=== PATIENT | female | born 1975 | race Caucasian/White ===

== ENCOUNTER 2020-12-31 13:46 | Outpatient (REF) | payer OTHER, SELFPAY | END 2020-12-31 13:47 | disposition home or self-care (01) | LOC: HO.LNP 13:46 | PROVIDERS: Visit Provider Internal Medicine | DX: J02.9 Acute pharyngitis, unspecified (principal) | CPT/HCPCS: 87071 ==

== ENCOUNTER 2021-02-11 08:58 | Outpatient (REF) | payer OTHER, SELFPAY ==
--- NOTE | ~2021-02-11 | MM_ITS ---
EXAMINATION: MM SCREENING DIGITAL BREAST TOMOSYNTHESIS, BILATERAL CLINICAL INFORMATION: Screening. Asymptomatic. The lifetime risk of breast cancer based on the Tyrer-Cuzick Model is 10.4%. COMPARISON: Mammography: 02/06/2020 and studies dating back to 07/24/2013 TECHNIQUE: Digital breast tomosynthesis is performed in both the craniocaudal and mediolateral oblique views along with computer-aided detection (CAD). Synthesized 2-D images are generated from the tomosynthesis. FINDINGS: The breasts are heterogeneously dense, which may obscure small masses (ACR BI-RADS breast composition Category c). Within the superior aspect of the right breast approximately 7 cm from nipple, there is a region of some architectural distortion which appears more prominent than on prior studies, and spot compression view is recommended. This is not definitely seen on craniocaudal view but on tomosynthesis is seen to lie more medial than lateral. The left breast appears unremarkable without abnormal dominant mass or suspicious grouping of microcalcifications. MM/MM tomosynthesis screening BI IMPRESSION: Right breast density for spot compression view and possible ultrasound. ASSESSMENT: BI-RADS 0: Incomplete - Need Additional Imaging Evaluation. RECOMMENDATION: 1. Additional views of the right breast. 2. Targeted ultrasound if warranted after review of the additional views. 3. Radiology department staff will contact the patient for additional imaging.
== END 2021-02-11 08:59 | disposition home or self-care (01) ==
LOC: HO.MAMMO 08:58
PROVIDERS: Visit Provider Internal Medicine
DX: Z12.31 Encounter for screening mammogram for malignant neoplasm of breast (principal)
CPT/HCPCS: 77063; 77067

== ENCOUNTER 2021-02-13 08:23 | Outpatient (REF) | payer OTHER, SELFPAY ==
--- NOTE | ~2021-02-13 | MM_ITS ---
EXAMINATION: MM DIAGNOSTIC DIGITAL BREAST TOMOSYNTHESIS, RIGHT CLINICAL INFORMATION: Recall from screening for asymmetric density upper right breast limited to MLO view. TC score 10%. COMPARISON: Mammography: 02/11/2021 and prior exams dating back to 07/24/2013. TECHNIQUE: Digital breast tomosynthesis is performed. 2D images are generated from the tomosynthesis. The following views are obtained: Spot MLO, standard ML. FINDINGS: There are scattered areas of fibroglandular density (ACR BI-RADS breast composition Category b). Breast tissue composition borders on heterogeneously dense. Parenchymal pattern is similar to prior studies dating back to 2013. There are shifting fibroglandular densities from year to year. There is no developing density or interval mass or architectural abnormality. Results are discussed with the patient at time of visit. MM/MM tomosynthesis added views R IMPRESSION: Additional views show no significant changes from prior exams. ASSESSMENT: BI-RADS 2: Benign RECOMMENDATION: Routine annual mammography screening. This patient's information was entered into a reminder system with a target due date for their next mammogram.
== END 2021-02-13 08:24 | disposition home or self-care (01) ==
LOC: HO.MAMMO 08:23
PROVIDERS: Visit Provider Internal Medicine
DX: R92.2 Inconclusive mammogram (principal)
CPT/HCPCS: 77061; 77065

== ENCOUNTER 2021-05-07 15:07 | Outpatient (REF) | payer OTHER, SELFPAY ==
--- NOTE | ~2021-05-07 | XR_ITS ---
EXAMINATION: XR LUMBOSACRAL SPINE CLINICAL INFORMATION: Back pain. COMPARISON: None TECHNIQUE: Three views of the lumbosacral spine. FINDINGS: No fracture or subluxation. Vertebral body height and alignment is maintained. Mild disc space narrowing at L5-S1. Small multilevel endplate osteophytes. The sacroiliac joints are symmetric. The visualized sacrum is intact. The bowel gas pattern is unremarkable. XR/XR lumbar spine 2-3V IMPRESSION: Mild degenerative change throughout.
[2021-05-07 15:26] LABS: MANUAL DIFF FLAG NO
[2021-05-07 15:48] LABS: Basophils Percent Auto 0.4 % (0-2); Eosinophils Absolute Auto 0.1 X10*3/uL (0.0-0.4); Eosinophils Percent Auto 1.2 % (0-4); Imm Gran Abs Auto 0.04 X10*3/uL (0.00-0.03); Imm Gran Pct Auto 0.6 % (0.0-0.4); Lymphocytes Absolute Auto 2.1 X10*3/uL (1.2-4.9); Lymphocytes Percent Auto 31.5 % (20-40); Mean Corpuscular HGB Conc 32.3 g/dl (31.0-35.0); Mean Corpuscular Hemoglobin 29.1 pg (27.0-33.0); Mean Corpuscular Volume 90.1 fL (80.0-98.0); Mean Platelet Volume 10.6 fL (9.4-12.3); Monocytes Absolute Auto 0.5 X10*3/uL (0.1-1.2); Monocytes Percent Auto 8.1 % (2-11); Neutrophils Absolute Auto 3.9 x10*3/uL (2.0-8.3); Neutrophils Percent Auto 58.2 % (45-73); Platelet Count 272 X10*3/uL (160-400); Red Blood Count 3.44 X10*6/uL (4.20-5.50); Red Cell Distribution Width 13.9 % (11.0-16.0); White Blood Count 6.7 X10*3/uL (4.8-10.8)
[2021-05-07 16:15] LABS: Alanine Aminotransferase 13 U/L (0-31); Alkaline Phosphatase 33 U/L (39-117); Anion Gap 12 (12-20); Aspartate Amino Transferase 12 U/L (5-31); Bilirubin Total 0.5 mg/dL (0.0-1.0); Blood Urea Nitrogen 10 mg/dL (9-16); C Reactive Protein 0.09 mg/dL (< or = 0.50); Carbon Dioxide 26 mmol/L (22-29); Chloride 104 mmol/L (96-108); Estimated Glomerular Filt Rate > 60; Glucose Random 99 mg/dL (60-115); Potassium 4.9 mmol/L (3.3-5.1); Sodium 137 mmol/L (135-145); Total Protein 6.3 g/dL (6.5-8.0)
[2021-05-07 16:33] LABS: Appearance Urine CLEAR; Color Urine YELLOW; Glucose Urine UA NEG (NEG); Leukocyte Esterase Urine NEG (NEG); Nitrite Urine NEG (NEG); Urine Blood NEG (NEG); Urine Ketones 15 MG/DL (NEG); Urine Protein NEG (NEG-TRACE)
== END 2021-05-07 15:08 | disposition home or self-care (01) ==
LOC: HO.XRAY 15:07
PROVIDERS: Visit Provider Internal Medicine
DX: M54.9 Dorsalgia, unspecified (principal)
CPT/HCPCS: 36415; 72100; 80053; 81003; 82550; 85025; 86140; 87086; 87147

== ENCOUNTER 2022-02-12 09:16 | Outpatient (REF) | payer OTHER, SELFPAY ==
--- NOTE | ~2022-02-12 | MM_ITS ---
EXAMINATION: MM SCREENING DIGITAL BREAST TOMOSYNTHESIS, BILATERAL CLINICAL INFORMATION: Screening. Asymptomatic. The lifetime risk of breast cancer based on the Tyrer-Cuzick Model is 9%. COMPARISON: Mammography: 02/13/2021, 02/11/2021, 02/06/2020, 09/01/2018 TECHNIQUE: Digital breast tomosynthesis is performed in both the craniocaudal and mediolateral oblique views along with computer-aided detection (CAD). Synthesized 2D images are generated from the tomosynthesis. FINDINGS: There are scattered areas of fibroglandular density (ACR BI-RADS breast composition Category b). There are no significant masses, abnormal calcifications, or other abnormalities. Parenchymal pattern is similar to prior studies. There is no developing density or architectural abnormality. The axilla and skin contours are unremarkable. No significant changes. MM/MM tomosynthesis screening BI IMPRESSION: No mammographic evidence of malignancy. ASSESSMENT: BI-RADS 1: Negative RECOMMENDATION: Routine annual mammography screening. This patient's information was entered into a reminder system with a target due date for their next mammogram.
== END 2022-02-12 09:17 | disposition home or self-care (01) ==
LOC: HO.MAMMO 09:16
PROVIDERS: Visit Provider Internal Medicine
DX: Z12.31 Encounter for screening mammogram for malignant neoplasm of breast (principal)
CPT/HCPCS: 77063; 77067

== ENCOUNTER 2022-04-09 15:49 | Outpatient (REF) | payer OTHER, SELFPAY | END 2022-04-09 15:50 | disposition home or self-care (01) | LOC: HO.LAB 15:49 | PROVIDERS: PCP Internal Medicine; Visit Provider Internal Medicine | DX: R30.0 Dysuria (principal) | CPT/HCPCS: 87086; 87147 ==

== ENCOUNTER 2023-02-22 15:45 | Outpatient (REF) | payer OTHER, SELFPAY | END 2023-02-22 15:46 | disposition home or self-care (01) | LOC: HO.MAMMO 15:45 | PROVIDERS: PCP Internal Medicine; Visit Provider Internal Medicine | DX: Z12.31 Encounter for screening mammogram for malignant neoplasm of breast (principal) | CPT/HCPCS: 77063; 77067 ==

== ENCOUNTER → 2023-02-22 16:00 | Outpatient (BNV) | payer OTHER, SELFPAY | PROVIDERS: PCP Internal Medicine; Visit Provider Radiology Diagnostic Radiology | DX: Z12.31 Encounter for screening mammogram for malignant neoplasm of breast (principal) | CPT/HCPCS: 77063; 77067 ==

== ENCOUNTER 2023-04-20 14:05 | Outpatient (REF) | payer OTHER, SELFPAY ==
[2023-04-20 14:53] LABS: Appearance Urine Clear; Color Urine Yellow; Glucose Urine UA Negative (Negative); Leukocyte Esterase Urine Negative (Negative); Nitrite Urine Negative (Negative); PH 5.5 (5.0-9.0); Specific Gravity - Urine >= 1.030 (1.005-1.025); Urine Blood Negative (Negative); Urine Ketones Trace mg/dL (Negative); Urine Protein Negative (Neg-Trace)
== END 2023-04-20 14:06 | disposition home or self-care (01) ==
LOC: HO.LAB 14:05
PROVIDERS: PCP Internal Medicine; Visit Provider Internal Medicine
DX: R30.0 Dysuria (principal)
CPT/HCPCS: 81003; 87086

== ENCOUNTER 2023-04-25 16:18 | Outpatient (REF) | payer OTHER, SELFPAY ==
[2023-04-25 16:32] LABS: MANUAL DIFF FLAG NO
[2023-04-25 16:57] LABS: Basophils Percent Auto 0.5 % (0-2); Eosinophils Absolute Auto 0.1 X10*3/uL (0.0-0.4); Eosinophils Percent Auto 1.8 % (0-4); Hematocrit 35.6 % (37.0-47.0); Hemoglobin 11.7 g/dl (12.0-16.0); Imm Gran Abs Auto 0.02 X10*3/uL (0.00-0.03); Imm Gran Pct Auto 0.3 % (0.0-0.4); Lymphocytes Absolute Auto 1.8 X10*3/uL (1.2-4.9); Lymphocytes Percent Auto 29.9 % (20-40); Mean Corpuscular HGB Conc 32.9 g/dl (31.0-35.0); Mean Corpuscular Hemoglobin 29.6 pg (27.0-33.0); Mean Corpuscular Volume 90.1 fL (80.0-98.0); Mean Platelet Volume 10.4 fL (9.4-12.3); Monocytes Absolute Auto 0.5 X10*3/uL (0.1-1.2); Monocytes Percent Auto 8.9 % (2-11); Neutrophils Absolute Auto 3.6 x10*3/uL (2.0-8.3); Neutrophils Percent Auto 58.6 % (45-73); Platelet Count 263 X10*3/uL (160-400); Red Blood Count 3.95 X10*6/uL (4.20-5.50); Red Cell Distribution Width 12.7 % (11.0-16.0); White Blood Count 6.1 X10*3/uL (4.8-10.8)
[2023-04-25 17:48] LABS: Alanine Aminotransferase 14 U/L (0-31); Albumin Level 4.4 g/dL (3.5-5.0); Alkaline Phosphatase 38 U/L (39-117); Anion Gap 10 (12-20); Aspartate Amino Transferase 12 U/L (5-31); Bilirubin Total 0.4 mg/dL (0.0-1.0); Blood Urea Nitrogen 8 mg/dL (9-16); C Reactive Protein < 0.10 mg/dL (< or = 0.50); Calcium 9.5 mg/dL (8.4-10.2); Carbon Dioxide 28 mmol/L (22-29); Chloride 104 mmol/L (96-108); Estimated Glomerular Filt Rate > 60; Glucose Random 82 mg/dL (60-115); Potassium 3.9 mmol/L (3.3-5.1); Sodium 138 mmol/L (135-145)
== END 2023-04-25 16:19 | disposition home or self-care (01) ==
LOC: HO.LAB 16:18
PROVIDERS: PCP Internal Medicine; Visit Provider Internal Medicine
DX: M54.9 Dorsalgia, unspecified (principal); R20.8 Other disturbances of skin sensation
CPT/HCPCS: 36415; 80053; 82550; 85025; 86140

== ENCOUNTER 2023-06-23 10:47 | Outpatient (REF) | payer OTHER, SELFPAY ==
[2023-06-23 13:29] LABS: MANUAL DIFF FLAG NO
[2023-06-23 13:34] LABS: Basophils Percent Auto 0.6 % (0-2); Eosinophils Absolute Auto 0.1 X10*3/uL (0.0-0.4); Eosinophils Percent Auto 2.6 % (0-4); Hematocrit 35.2 % (37.0-47.0); Hemoglobin 11.6 g/dl (12.0-16.0); Imm Gran Abs Auto 0.01 X10*3/uL (0.00-0.03); Imm Gran Pct Auto 0.2 % (0.0-0.4); Lymphocytes Absolute Auto 1.8 X10*3/uL (1.2-4.9); Lymphocytes Percent Auto 32.8 % (20-40); Mean Corpuscular Hemoglobin 29.2 pg (27.0-33.0); Mean Corpuscular Volume 88.7 fL (80.0-98.0); Mean Platelet Volume 10.7 fL (9.4-12.3); Monocytes Absolute Auto 0.4 X10*3/uL (0.1-1.2); Monocytes Percent Auto 8.3 % (2-11); Neutrophils Percent Auto 55.5 % (45-73); Platelet Count 225 X10*3/uL (160-400); Red Blood Count 3.97 X10*6/uL (4.20-5.50); Red Cell Distribution Width 13.1 % (11.0-16.0); White Blood Count 5.3 X10*3/uL (4.8-10.8)
[2023-06-23 14:10] LABS: Alanine Aminotransferase 14 U/L (0-31); Albumin Level 4.1 g/dL (3.5-5.0); Alkaline Phosphatase 35 U/L (39-117); Anion Gap 12 (12-20); Aspartate Amino Transferase 12 U/L (5-31); Bilirubin Total 0.7 mg/dL (0.0-1.0); Blood Urea Nitrogen 12 mg/dL (9-16); Calcium 8.9 mg/dL (8.4-10.2); Carbon Dioxide 26 mmol/L (22-29); Chloride 104 mmol/L (96-108); Cholesterol 199 mg/dL (<200); Estimated Glomerular Filt Rate > 60; Glucose Fasting 91 mg/dL (60-99); HDL Cholesterol 85 mg/dL (>40); LDL Cholesterol Calculated 106 mg/dL (<100); Potassium 4.1 mmol/L (3.3-5.1); Sodium 138 mmol/L (135-145); Total Protein 6.8 g/dL (6.5-8.0); Triglycerides 43 mg/dL (<150); Vitamin D 25-OH Total 63.3 ng/mL (>30)
== END 2023-06-23 10:48 | disposition home or self-care (01) ==
LOC: HO.10HDL 10:47
PROVIDERS: Visit Provider Internal Medicine
DX: E78.00 Pure hypercholesterolemia, unspecified (principal); K21.9 Gastro-esophageal reflux disease without esophagitis; I83.90 Asymptomatic varicose veins of unspecified lower extremity
CPT/HCPCS: 36415; 80053; 80061; 82306; 85025

== ENCOUNTER 2024-01-10 06:47 | Day surgery (SDC) | payer OTHER, SELFPAY ==
[2024-01-06 14:43] VITALS: BMI 24.5
--- NOTE | 2024-01-09 10:13 | HO.ANESPROP2 ---
Documented by User: Lorelei Morillo NP 01/09/24 10:13 HPI - Anesthesia Eval Consult details Narrative: 48yo F for Colonoscopy [facility] Past Medical History Medical History Hypotension Surgical History Surgical History Hx of varicose vein ligation and stripping Social History Social History Household Members: Spouse Patient Tobacco Use Status: Never used Tobacco Use of substances other than those prescribed or required for medical reasons: No Are you DNR?: No Advance Directives: No Advance Directives Information Provided: Yes Meds Allergies Allergy/AdvReac Type Severity Reaction Status Date / Time No Known Allergies [NKA] Allergy Verified 01/10/24 07:20 Home Medications ?Medication ?Instructions ?Recorded ?Confirmed ?Last Taken ?Type biotin 10 mg tablet 10 mg PO DAILY 01/06/24 01/06/24 Unknown History cholecalciferol (vitamin D3) 50 50 mcg PO DAILY 01/06/24 01/06/24 Unknown History mcg (2,000 unit) capsule (Vitamin D3) collagen,hydrolysate 500 mg-biotin 1 cap PO DAILY 01/06/24 01/06/24 Unknown History 800 mcg-ascorbic acid 50 mg capsule (Collagen 1500 Plus C) multivitamin 1 tab PO DAILY 01/06/24 01/06/24 Unknown History Exam Height,Weight and Vital Signs: Height 5 ft 4 in Weight 64.864 kg Assessment and Plan Assessment Anesthesia Assessment: Chart Reviewed Documented by User: Jennifer Liu MD 01/10/24 07:39 PMF Past Medical History Medical History Hypotension Family History Family history of problems with anesthesia: No Surgical History Surgical History Hx of varicose vein ligation and stripping History of Problems with Anesthesia: No Social History Social History Household Members: Spouse Patient Tobacco Use Status: Never used Tobacco Use of substances other than those prescribed or required for medical reasons: No Are you DNR?: No Advance Directives: No Advance Directives Information Provided: Yes Meds Allergies Allergy/AdvReac Type Severity Reaction Status Date / Time No Known Allergies [NKA] Allergy Verified 01/10/24 07:20 Home Medications ?Medication ?Instructions ?Recorded ?Confirmed ?Last Taken ?Type biotin 10 mg tablet 10 mg PO DAILY 01/06/24 01/06/24 Unknown History cholecalciferol (vitamin D3) 50 50 mcg PO DAILY 01/06/24 01/06/24 Unknown History mcg (2,000 unit) capsule (Vitamin D3) collagen,hydrolysate 500 mg-biotin 1 cap PO DAILY 01/06/24 01/06/24 Unknown History 800 mcg-ascorbic acid 50 mg capsule (Collagen 1500 Plus C) multivitamin 1 tab PO DAILY 01/06/24 01/06/24 Unknown History Exam Airway Mallampati Class: II TM Dist: >3cm Neck ROM: Full Heart: rrr Lungs: cta Assessment and Plan Assessment Anesthesia Assessment: Anesthesia Plan Discussed Final Anesthetic Review Family History of Problems with Anesthesia: No History of Problems with Anesthesia: No NPO: Yes ASA Class: I Final Preanesthetic Review: No Changes in Pt Med Stat, Meds/Allgs Chart Reviewed, Consent Obtained/Reviewed and Anes Risks/Benef Reviewed Patient Risk: Low Procedure Risk: Low Anesthetic Plan Anesthetic Plan: MAC: Disposition: Standard PACU
[2024-01-10 07:21] VITALS: BMI 25.0
[2024-01-10 07:28] LABS: UPreg QC Valid YES; Urine Pregnancy NEGATIVE (NEGATIVE)
[2024-01-10 07:30] VITALS: BP 102/61; PULSE 68; RESP 16; TEMP 36.4; O2SAT 100
[2024-01-10] MEDS: Lactated Ringers 1,000 ML 100 ML IVCONT (07:42)
--- NOTE | 2024-01-10 08:15 | P.HPSUR_ITS ---
Pre-Procedural Eval Section A - 24 Hr Update-Section A only Date of Service: 01/10/24 Section B - Complete if H&P > 30 days Chief Complaint: Encounter for screening for malignant neoplasm of Details of Present Illness: see H&P no changes Relevant Family History (Specify if Yes): No Relevant Social History: None Present Medications: see Short Stay Collaborative assessment Medical History: No relevant PMH History of Previous Operations: No relevant previous surgery Allergies: Allergies Allergy/AdvReac Type Severity Reaction Status Date / Time No Known Allergies [NKA] Allergy Verified 01/10/24 07:20 Review of Systems Sugical H&P ROS: Negative: Constitution, Cardiovascular, Respiratory, Neurological, Psychiatric, Hem-Onc, Allergic/Immunologic, Gastrointestinal, Genitourinary, Musculoskeletal, Integumentary, Endocrine and Eyes/E ars/Nose/Throat Exam Surgical H&P Exam: Normal: HEENT, Normal: Heart, Normal: Lungs, Normal: Extremities, Normal: Abdomen, Normal: Skin and Normal: Neurological Plan Diagnosis/Plan: Unchanged I have reviewed the history and physical and performed a pertinent physical examination on my patient. No changes have occurred unless specified. Time Spent With Patient Time: Total time managing care of this patient today ____ minutes.
[2024-01-10 08:56] VITALS: BP 100/56; PULSE 76; RESP 16; TEMP 36.1; O2SAT 100
[2024-01-10 09:12] VITALS: BP 112/73; PULSE 69; RESP 20; TEMP 36.6; O2SAT 99
--- NOTE | 2024-01-10 09:48 | OP_ITS ---
DATE OF SERVICE: 01/10/2024 SURGEON: Brad Merchant MD INDICATIONS: Colon cancer screening. PREOPERATIVE DIAGNOSIS: POSTOPERATIVE DIAGNOSIS: PROCEDURE PERFORMED: Colonoscopy to the terminal ileum with biopsy. ESTIMATED BLOOD LOSS: COMPLICATIONS: ANESTHESIA: Monitored anesthesia care. ASSISTANTS: SPECIMENS: DESCRIPTION OF PROCEDURE: A history and physical performed. The risks and benefits of the procedure were explained to the patient. Informed consent was obtained. The patient was placed in the left lateral decubitus position. A digital rectal exam was performed and was found to be normal. The Olympus pediatric video colonoscope was introduced into the rectum and advanced to the cecum. The cecum was identified by transillumination, palpation, and identification of ileocecal valve. Examination was performed. The scope was removed. She tolerated the procedure well and was returned to the recovery area in stable condition. FINDINGS: The terminal ileum was briefly examined and appeared normal. The visualized colonic mucosa was normal. The quality of prep was good. Single polyp was identified at 20 cm from the anal verge and removed with biopsy forceps. No other polyps were identified. Retroflexed examination was normal. IMPRESSION: Colon polyp. RECOMMENDATIONS: Follow up with the biopsy results. MD MENDEZ Westfall/FREDDY / [id number]
== END 2024-01-10 09:31 | disposition home or self-care (01) ==
PROVIDERS: Nurse Practitioner; PCP Internal Medicine; Visit Provider Internal Medicine Gastroenterology
PROC: 0DJD8ZZ Inspection of Lower Intestinal Tract, Via Natural or Artificial Opening Endoscopic (ICD-10-PCS; CPT 45378; principal; 2024-01-10 08:20)
DX: Z12.11 Encounter for screening for malignant neoplasm of colon (principal); K63.5 Polyp of colon
CPT/HCPCS: 45380; 81025; 88305; J2704

== ENCOUNTER 2024-02-28 15:32 | Outpatient (REF) | payer OTHER, SELFPAY ==
--- NOTE | ~2024-02-28 | MM_ITS ---
EXAMINATION: MM SCREENING DIGITAL BREAST TOMOSYNTHESIS, BILATERAL CLINICAL INFORMATION: Screening. Asymptomatic. COMPARISON: Mammography: Comparison is made with available priors TECHNIQUE: Digital breast tomosynthesis is performed in both the craniocaudal and mediolateral oblique views along with computer-aided detection (CAD). Synthesized 2D images are generated from the tomosynthesis. FINDINGS: The breasts are heterogeneously dense, which may obscure small masses (ACR BI-RADS breast composition Category c). There are no significant masses, abnormal calcifications, or other abnormalities. MM/MM tomosynthesis screening BI IMPRESSION: No mammographic evidence of malignancy. ASSESSMENT: BI-RADS BI-RADS 1 - Negative RECOMMENDATION: Routine annual mammography screening. 1 year F/U This examination should not preclude the clinical evaluation of a suspicious palpable abnormality. This patient's information was entered into a reminder system with a target due date for their next mammogram. Electronically signed by: Mary Jo Camacho DO 03/23/2024 03:31 PM EDT
== END 2024-02-28 15:33 | disposition home or self-care (01) ==
LOC: HO.MAMMO 15:32
PROVIDERS: PCP Internal Medicine; Visit Provider Internal Medicine
DX: Z12.31 Encounter for screening mammogram for malignant neoplasm of breast (principal)
CPT/HCPCS: 77063; 77067

== ENCOUNTER → 2024-02-28 16:00 | Outpatient (BNV) | payer OTHER, SELFPAY | PROVIDERS: PCP Internal Medicine; Visit Provider Internal Medicine | DX: Z12.31 Encounter for screening mammogram for malignant neoplasm of breast (principal) | CPT/HCPCS: 77063; 77067 ==

== ENCOUNTER 2024-12-18 16:06 | Outpatient (AMB) | payer OTHER, SELFPAY ==
--- NOTE | 2024-12-18 16:09 | MHC.PC.OV ---
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 She reports 4 days ago, she developed a room spinning/off-balance sensation associated with nausea and dry heaves. This was constant that day but improved the next day. However, she does have a constant pressure in her head as well as in her ears, states she feels like she is underwater. No tinnitus or hearing loss. No fevers or rigors. She does continue to experience intermittent vertigo like symptoms with position changes and head movements. She also feels fatigued. States initially she did have a sore throat when swallowing but otherwise has not had any sore throat, sinus congestion, postnasal drip, otalgia, cough. She states her did report she looked pale and clammy on Tuesday. ROS: General: No fevers, malaise, unintentional weight loss HEENT: See HPI Cardiovascular: No chest pain, palpitations, or leg edema Respiratory: No shortness of breath, wheezing, cough GI: See HPI MSK: No myalgia, back pain Neuro: No weakness, paresthesias Skin: No rashes or lesions EXAM: Constitutional - Awake and Alert, No apparent distress Eyes - PERRL Ears-external ears normal, canals clear, tympanic membranes intact with air-fluid levels noted Cardiovascular - S1S2, RRR, No edema Respiratory - Normal lung expansion, Normal respiratory effort, No respiratory distress, CTA bilaterally Extremities - no calf tenderness bilaterally, no swelling Skin - Warm/Dry Neurological - Alert & oriented x3, horizontal nystagmus noted, CN II-XII otherwise within normal limits Psychological - Appropriate affect PFSH Medical History Hypotension Surgical History Hx of varicose vein ligation and stripping Social History Household Members: Spouse Patient Tobacco Use Status: Never used Tobacco Questionnaire PHQ-9 Over the last 2 weeks, how often have you been bothered by any of the following problems? 1. Little interest or pleasure in doing things: not at all 2. Feeling down, depressed, or hopeless: not at all 3. Trouble falling or staying asleep, or sleeping too much: not at all 4. Feeling tired or having little energy: not at all 5. Poor appetite or overeating: not at all 6. Feeling bad about yourself - or that you are a failure or have let yourself or your family down: not at all 7. Trouble concentrating on things, such as reading the newspaper or watching television: not at all 8. Moving or speaking so slowly that other people could have noticed. Or the opposite - being so fidgety or restless that you have been moving around a lot more than usual: not at all 9. Thoughts that you would be better off or of hurting yourself in some way: not at all Total score: 0 Source: Developed by Drs. Rizwan Oslon, Tiffany Mcgrath, Satya Hamilton and colleagues, with an educational sheila from [employer]. Thrive Questionnaire Date Thrive assessed: 12/18/24 I am a: Patient What is your living situation today?: I have a steady place to live Within the past 12 months, did the food you bought not last and you didn't have the money to get more?: Never true Within the past 12 months, did you worry whether your food would run out before you got money to buy more?: Never true Do you have trouble paying for medicines?: No Do you have trouble getting transportation to medical appointments?: No Do you have trouble paying your heating and electricity bill?: No Do you have trouble taking care of your child, family member or friend?: No Do you have trouble with day-to-day activities such as bathing, preparing meals, shopping, managing finances, etc.?: No Are you currently unemployed and looking for a job?: No Are you interested in more education?: No Please select the resources that you would like help with: None THRIVE Score: 0 RODNEY-7 AMB Questionnaire RODNEY-7 Date RODNEY - 7 assessed: 12/18/24 Feeling nervous, anxious, or on edge: 0 = Not at all Not being able to stop or control worryin = Not at all Worrying too much about different things: 0 = Not at all Trouble relaxin = Not at all Being so restless that it is hard to sit still: 0 = Not at all Becoming easily annoyed or irritable: 0 = Not at all Feeling afraid as if something awful might happen: 0 = Not at all Total RODNEY-7 score (0-4 normal; 5-9 mild; 10-14 moderate; 15-21 severe): 0 Source: Developed by Drs. Rizwan Olson, Tiffany Mcgrath, Satya Hamilton and colleagues, with an educational sheila from [employer]. Physical exam (Primary Care) Vital Signs: Last Vital Signs Temp 97.7 F 12/18/24 16:13 Pulse 77 12/18/24 16:13 Resp 16 12/18/24 16:13 BP 110/66 12/18/24 16:13 Pulse Ox 99 12/18/24 16:13 Oxygen Delivery Method Room Air 12/18/24 16:13 BMI result Body Mass Index 24.7 Tobacco/Smoking Status: Tobacco use Status Patient Tobacco Use Status Never used Tobacco 12/18/24 16:16 Coding Level of Care Code New Pt Level 3 (44740) Complex EM visit Add On G2211 Diagnoses Sinus headache R51.9 Vertigo R42 Assessment & Plan Assessment & Plan (1) Sinus headache: Code(s): R51.9 - Headache, unspecified Category: Medical Plan: Suspect symptoms are related to a viral upper respiratory infection with sinusitis resulting in both head and ear pressure. Recommend Flonase, Claritin. Given short course of prednisone. Educated on side effects as well as dosing of medication (2) Vertigo: Code(s): R42 - Dizziness and giddiness Category: Medical Plan: Likely secondary to above. Given prescription for meclizine 25 mg as needed for vertigo. Plan Follow-up in the office as scheduled for annual exam. Labs to be completed several days prior to visit Orders: Orders Complete Blood Count Auto Diff Today Z00.00 - Encounter for general adult medical examination without abnormal findings Hemoglobin A1c Today Z00.00 - Encounter for general adult medical examination without abnormal findings TSH reflex Free T4 Today Z00.00 - Encounter for general adult medical examination without abnormal findings Basic Metabolic Panel Today Z00.00 - Encounter for general adult medical examination without abnormal findings Lipid Panel Today Z00.00 - Encounter for general adult medical examination without abnormal findings Liver Panel Today Z00. - Encounter for general adult medical examination without abnormal findings Vitamin D 25-OH Total Today Z00. - Encounter for general adult medical examination without abnormal findings Medications: New loratadine (Allergy Relief (loratadine)) 10 mg PO DAILY 30 tabs 0RF fluticasone propionate 50 mcg/actuation (Allergy Relief (fluticasone)) administer into each nostril 1 spray intranasal Q12H 16 grams 0RF prednisone 20 mg PO BID 10 tabs 0RF meclizine 25 mg PO BID PRN 30 tabs 0RF dizziness Patient Instructions: Your symptoms are likely related to a sinusitis which can cause vertigo as well as pressure in the head and ears. Recommending the following medications: Loratadine (Claritin) 10 mg daily Fluticasone (Flonase) nasal spray 1 spray each nostril twice daily Meclizine 25 mg as needed for vertigo Prednisone 40 mg daily x5 days
[2024-12-18 16:13] VITALS: BP 110/66; PULSE 77; RESP 16; TEMP 36.5; O2SAT 99; BMI 24.7
--- OUTSIDE RECORDS SUMMARY | 2024-12-18 18:28 | XMS_ITS | Patient Health Record ---
Author Organization [facility] Address [address] [place] [address] Care Team Providers Care Vascular Specialists Name Role Phone Erick Bangura MD Primary Care Provider Brad Peterson Jr Unavailable Allergies No Known Allergies Results Component Value Reference Range Notes Ur Preg Test Reviewed date:01/12/2024 11:18:08 AM Interpretation: Performing Lab:[facility], [address] [place] [phone] Notes/Report: Urine NEGATIVE NEGATIVE This test was developed to detect early . False negative results may occur after the 5th - 7th week of when using this test method. If clinically indicated, consider a serum hCG. Pathology Reviewed date:01/12/2024 11:46:47 AM Interpretation: Performing Lab:[facility], [address] [place] [phone] Notes/Report: ----- Name: Wilfrid Kim Age/Sex: 48/F : 1975 Unit#: [id number] Attend Dr: Brad Merchant MD Re01/10/24 Status : [facility] Location: [place] Disch: ----- SPEC : [id number] RECD : 01/10/24 STATUS: SIENA SANDY NUM: [id number] ANDERS: 01/10/[address]: Brad Merchant MD ENTERED: 01/10/24 SP TYPE: Surgical OTHR DR: Erick Bangura MD ORDERED: HE Stain/3, Gross Micro L4 Diagnosis Colon, 20 cm, polypectomy: Hyperplastic mucosal polyp. Clinical History Pre-Op Dx: Screening Post-Op Dx: Colon polyp Microscopic Description Microscopic sections reviewed. Material Received Polyp @ 20 cm Gross Description Received in formalin labeled ?polyp @ 20 cm? is 1 gordon 3 mm soft tissue fragment, totally submitted in [employer] e A1. (KR) Copies To: Brad Merchant MD [facility] [address] [place] [address] Erick Bangura MD [facility] [address] [place] [address] ----- Signed (signature on file) Ricardo Mims MD 01/11/24 1736 ----- END OF REPORT Reason For Referral No Information Medications Medication SIG (Take, Route, Frequency, Duration) Notes Start Date End Date Status Biotin 10 MG 1 tablet Orally Once a day for 30 day(s) Active Multi Vitamin - 1 tablet Orally Once a day for 30 day(s) Active Collagen 1500/C 500-50-0.8 MG as directed Orally Active Vitamin D 50 MCG (1999) 1 tablet Oral ly Once a day for 30 day(s) Active MiraLax (colon prep) 17 GM/SCOOP mixed with Gatorade or Crystal Light Orally begin at 5:00 p.m. the day before the procedure for 1 day 12/05/2023 Active Immunizations Vaccine Route Administration Date Status Comme nts Influenza Unknown 12/05/2023 Refused Social History Tobacco Use: Social History Observation Description Date Details (start date - stop date) Never Smoker NA - NA Tobacco Use/Smoking Question Answer Notes Patient is a nonsmoker Alcohol Screen Question Answer Notes Did you have a drink contain ing alcohol in the past year? Yes How often did you have a dri nk containing alcohol in the past year? 2 to 3 times a week (3 points) How many drinks did you have on a typical day when you were drinking in the past year? 1 or 2 drinks (0 point) How often did you have 6 or more drinks on one occasion in the past year? Never (0 point) Points 3 Interpretation Positive Problems Problem Type SNOMED Code ICD Code Onset Dates Problem Status W/U Status Risk Notes Problem [id number] Colon cancer screening (Z12.11) Active confirmed Problem 992933633 Encounter for other preprocedural examination (Z01.818) Active confirmed Encounters Encounter Location Date Provider Diagnosis [facility] [place] [facility] [address] [place], [place] [phone] 01/10/2024 Brad Merchant Jr Encounter for screening colonoscopy Z12.11 and Colon polyps K63.5 [facility] [address] [place] [phone] 01/09/2024 Brad Merchant Jr [facility] [address] [place] [phone] 01/12/2024 Brad Merchant Jr Assessments Encounter Date Diagnosis (ICD Code) Assessment Notes Treatment Notes Treatment Clinical Notes Section Notes 01/10/2024 Encounter for screening colonoscopy (ICD-10 - Z12.11) 01/10/2024 Colon polyps (ICD-10 - K63.5) Plan Of Treatment Future Test Test Name Order Date COLONOSCOPY 12/05/2023 Insurance Providers Payer Name Payer Address Payer Phone Subscriber Number Group Number Insured Name Patient Relationship to Insured Coverage Start Date Coverage End Date [facility] [address] [place] [phone] [id number] MORAIMA CHRISTIE Self - patient is the insured Medical (General) History Medical History History ICD Code low blood pressure Surgical History Surgery Date(Month/Year) Varicose vein stripping 07/26
== END 2024-12-18 16:44 | disposition home or self-care (01) ==
LOC: HO.HMCHD 16:06
PROVIDERS: PCP Internal Medicine; Visit Provider Physician Assistant
DX: R51.9 Headache, unspecified (principal); R42 Dizziness and giddiness

== ENCOUNTER 2025-01-07 11:15 | Outpatient (REF) | payer OTHER, SELFPAY ==
--- OUTSIDE RECORDS SUMMARY | 2022-08-19 09:30 | XMS_ITS | Continuity of Care Document ---
Author Organization [facility] Address [address] [place] [address] Phone Care Team Providers Care Ocular Care Technologist Name Role Phone Ender FRANKLIN FACS RVT GEORGE, Saad Suarez Unavailable Unavailable Allergies, Adverse Reactions, Alerts Substance Reaction Status Criticality No Known Allergies Active No Inform ation Procedures Procedure Date Office/Outpt E&M Established 25 Mins Aug Duplex Scan-extrem Veins; Uni/ 23 PT Did Not Receive Services Endovenous Laser, 1st Vein Endovenous laser vein addon Endovenous Laser, 1st Vein Endovenous laser vein addon Advance Directives Directive Yes / No Effective Date File Name No Information Encounters Encounter Description Practice Location Reason(s) For Visit Diagnoses Date Provider Providers Copied on Encounter Office/Outpt E&M Established 25 Mins [facility], [address] [place] [address] Dr [address], [place], [id number], [place] tel:[phone] CVR - [place] - Jemison Venous insufficiency (chronic) (peripheral)Bod y mass index (BMI) 24.0-24.9, adult 3 Ender FRANKLIN FACS RVT RPCEDRICK Suarez. [address], [address], [place], [address], [place]. tel:[phone] Referring Provider: Saad Handley MD FACS RVT [facility]I, [address], [place], [address]. tel:[phone] [facility], [address] [place] [address] Dr [address], [place], [id number], [place] tel:[phone] CVR - [place] - Jemison Encntr for f/u exam aft trtmt for cond oth than malig neoplmVaricose veins of right lower extremities with pain 3 Ender FRANKLIN FACS RVT VI Saad Suarez. [address], [address], [place], [address], [place]. [phone] Referring Provider: Saad Handley MD FACS RVT [facility], [address], [facility] [place], [address]. tel:[phone] [facility], [address] [place] [address] Dr [address], [place], [id number], [place] tel:[phone] CVR - [place] - Jemison No Information 3 Ender FRANKLIN FACS RVT [facility] Saad Suarez. [address], [address], [facility] [place], [address], [place]. tel:[phone] Referring Provider: Saad Handley MD FACS RVT [facility], [address], [facility] [place], [address]. 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 [address], [address], [facility] [place], [address], [place]. tel:[phone] Referring Provider: Saad Handley MD FACS RVT [facility], [address], [facility] [place], [address]. tel:[phone] [facility], [address] [place] [address] Dr [address], [place], [id number], [place] tel:[phone] CVR - [place] - Jemison Varicose veins of right low extrm w oth complications 3 Ender FRANKLIN FACS RVT GEORGE Suarez. [address], [address], [place], [address], [place]. tel:[phone] Referring Provider: Saad Handley MD FACS RVT RPCEDRICK, [address], [place], [address]. tel:[phone] Family History Family Member Type Diagnosis Age At Onset No Information Payers Payer name Insurance type Covered alliance party ID [employer] [facility] [id number] Social History Type Description Quantity Date Captured Comments Alcohol Use Details Caffeine Use Details Unknown Tobacco Use Status Never smoked tobacco 2022 Smoking Status Never smoker Non-Smoking Tobacco Use Details : No Details Available : No Details Available Sex Female Vital Signs Date / Time: Height Weight BMI Pulse Rate Blood Pressure Temperature Respiratory Rate Body Surface Area Head Circumference Head Circ. Percentile Wt./Layo. Percentile BMI percentile Pulse Ox Inhaled Ox 1:31 PM 64.00 in 63.503 kg (140.00 lbs) 24.0 3 kg/m eter (2) 1.69 meter(2) Chief Complaint And Reason For Visit No Information Reason For Referral Reason For Referral No Information Plan Of Treatment Date Type Action Status Goal Diet education completed History Of Present Illness Encounter Date Complaint History Of Prese nt Illness No Information Functional Status Date Functional Assessmen t No Information Instructions Date Instruction Additional Infor mation Giving Encouragement to Exercise Related to Body mass index [BMI] 24.0-24.9, adult Diet education Related to Body mass index [BMI] 24.0-24.9, adult Patient education booklet given Related to Venous Insufficiency (Chronic / Peripheral) Assessments Type Assessment Date assessment Venous insufficiency (chronic) ( peripheral) assessment Body mass index [BMI] 24.0-24.9, adult Patient Care Teams Name Effective Dates (start - stop) Status Members No Information
[2025-01-07 11:35] LABS: MANUAL DIFF FLAG NO
[2025-01-07 11:56] LABS: Hematocrit 33.9 % (37.0-47.0); Hemoglobin 10.9 g/dl (12.0-16.0); Imm Gran Abs Auto 0.01 X10*3/uL (0.00-0.03); Imm Gran Pct Auto 0.2 % (0.0-0.4); Lymphocytes Absolute Auto 1.4 X10*3/uL (1.2-4.9); Mean Corpuscular HGB Conc 32.2 g/dl (31.0-35.0); Mean Corpuscular Hemoglobin 28.6 pg (27.0-33.0); Mean Corpuscular Volume 89.0 fL (80.0-98.0); NRBC Abs Auto 0.000 X10*3/uL (0.0-0.012); NRBC Pct Auto 0.0 /100WBC (0.0-0.2); Platelet Count 257 X10*3/uL (160-400); Red Blood Count 3.81 X10*6/uL (4.20-5.50); White Blood Count 4.4 X10*3/uL (4.8-10.8)
--- OUTSIDE RECORDS SUMMARY | 2025-01-07 12:12 | XMS_ITS | Patient Health Record ---
Author Organization [facility] Address [address] [place] [address] Care Team Providers Care Seating And Mobility Technologist Name Role Phone Erick Bangura MD Primary Care Provider Brad Peterson Jr Unavailable [phone] Allergies No Known Allergies Results Component Value Reference Range Notes Ur Preg Test Reviewed date:01/12/2024 11:18:08 AM Interpretation: Performing Lab:[facility], [address] [place] [phone] Notes/Report: Urine NEGATIVE NEGATIVE This test was developed to detect early . False negative results may occur after the 5th - 7th week of when using this test method. If clinically indicated, consider a serum hCG. Pathology Reviewed date:01/12/2024 11:46:47 AM Interpretation: Performing Lab:[facility], [address] [place] [phone] Notes/Report: Reason For Referral No Information Medications Medication SIG (Take, Route, Frequency, Duration) Notes Start Date End Date Status Biotin 10 MG 1 tablet Orally Once a day for 30 day(s) Active Multi Vitamin - 1 tablet Orally Once a day for 30 day(s) Active Collagen 1500/C 500-50-0.8 MG as directed Orally Active Vitamin D 50 MCG (1999 [place]) 1 tablet Oral ly Once a day [...] Problem Status W/U Status Risk Notes Problem [id number] Colon cancer screening (Z12.11) Active confirmed Problem 475989803 Encounter for other preprocedural examination (Z01.818) Active confirmed Encounters Encounter Location Date Provider Diagnosis [facility] [place] [address] [place], [place] [phone] 01/10/2024 Brad Merchant Jr Encounter for screening colonoscopy Z12.11 and Colon polyps K63.5 [facility] [address] [place] [phone] 01/09/2024 Brad Merchant Jr [facility] [address] [facility] [address] [place] [phone] 01/12/2024 Brad Merchant Jr Assessments Encounter Date [...] Insured Coverage Start Date Coverage End Date [facility] [address] [facility] [place] [phone] [id number] MORAIMA CHRISTIE Self - patient is the insured Medical (General) History Medical History History ICD Code low blood pressure Surgical History Surgery Date(Month/Year) Varicose vein stripping 07/26
[2025-01-07 12:59] LABS: Hemoglobin A1C 83.6553 umol/L; Total Hemoglobin (HGBA1C) 2941.3846 umol/L
[2025-01-07 14:08] LABS: Anion Gap 10 (12-20)
[2025-01-07 14:13] LABS: Alanine Aminotransferase 17 U/L (0-31); Albumin Level 4.2 g/dL (3.5-5.0); Alkaline Phosphatase 43 U/L (39-117); Aspartate Amino Transferase 16 U/L (5-31); Blood Urea Nitrogen 10 mg/dL (9-16); Calcium 9.1 mg/dL (8.4-10.2); Carbon Dioxide 27 mmol/L (22-29); Chloride 105 mmol/L (96-108); Cholesterol 212 mg/dL (<200); Estimated Glomerular Filt Rate > 60; HDL Cholesterol 78 mg/dL (>40); Potassium 4.1 mmol/L (3.3-5.1); Sodium 138 mmol/L (135-145); Total Protein 6.6 g/dL (6.5-8.0); Triglycerides 51 mg/dL (<150)
== END 2025-01-07 11:16 | disposition home or self-care (01) ==
LOC: HO.LAB 11:15
PROVIDERS: PCP Physician Assistant; Visit Provider Physician Assistant
DX: Z00.00 Encounter for general adult medical examination without abnormal findings (principal)
CPT/HCPCS: 36415; 80048; 80061; 80076; 82306; 83036; 84443; 85025

== ENCOUNTER 2025-01-21 08:51 | Outpatient (AMB) | payer OTHER, SELFPAY ==
[2025-01-21 08:47] VITALS: BP 110/70; PULSE 70; TEMP 36.6; O2SAT 99; BMI 25.2
--- NOTE | 2025-01-21 08:47 | MHC.PC.OV ---
Vital Signs 01/21/25 08:47 Height 5 ft 4 in Weight 147 lb BMI 25.2 BP 110/70 Blood Pressure Location Lt brachial Position Sitting Pulse 70 Pulse Source Pulse Oximeter Temp 97.9 F Temp Source Axillary Pulse Oximetry (%) 99 Oxygen Delivery Method Room Air Intake Visit Reasons: Annual - see comments Molder Wax Ball Required: No Accompanied by: Self / Same As Patient Allergies No Known Allergies (NKA) Allergy (Verified 01/21/25 09:18) Tobacco use date assessed: 01/21/25 Dental Screening Dental Screen Date: 01/21/25 Did you have a dental visit in the last 12 months?: Yes Did you have a dental problem in the last 6 months where you did not have access to dental care?: No HPI Annual - see comments HPI Details Requests an annual physical [facility] Medical History (Updated 01/21/25 @ 09:21 by Storm Mariee MD) Hyperlipidemia Hypotension Surgical History History of colonoscopy (~01/10/24) Hx of varicose vein ligation and stripping Family History Mother No problems noted. Father No problems noted. Social History Household Members: Spouse Housing: House Patient Tobacco Use Status: Former Tobacco user e-Cigarette/Vaping Use: Former Use service: No Current occupational status: employed Cognitive needs: No Hearing needs: No Vision needs: Yes (rx glasses) Questionnaire PHQ-9 Over the last 2 weeks, how often have you been bothered by any of the following problems? 1. Little interest or pleasure in doing things: not at all 2. Feeling down, depressed, or hopeless: not at all 3. Trouble falling or staying asleep, or sleeping too much: not at all 4. Feeling tired or having little energy: not at all 5. Poor appetite or overeating: not at all 6. Feeling bad about yourself - or that you are a failure or have let yourself or your family down: not at all 7. Trouble concentrating on things, such as reading the newspaper or watching television: not at all 8. Moving or speaking so slowly that other people could have noticed. Or the opposite - being so fidgety or restless that you have been moving around a lot more than usual: not at all 9. Thoughts that you would be better off or of hurting yourself in some way: not at all Total score: 0 Depression Screening Interpretation: Negative Depression Screening Done: Yes Source: Developed by Drs. Rizwan Olson, Tiffany Mcgrath, Satya Hamilton and colleagues, with an educational sheila from [employer]. Thrive Questionnaire Date Thrive assessed: 01/21/25 I am a: Patient Within the past 12 months, did the food you bought not last and you didn't have the money to get more?: Never true Within the past 12 months, did you worry whether your food would run out before you got money to buy more?: Never true Do you have trouble paying for medicines?: No Do you have trouble getting transportation to medical appointments?: No Do you have trouble paying your heating and electricity bill?: No Do you have trouble taking care of your child, family member or friend?: No Do you have trouble with day-to-day activities such as bathing, preparing meals, shopping, managing finances, etc.?: No Are you currently unemployed and looking for a job?: No Are you interested in more education?: No Currently or been in a relationship where the following occur: No concerns reported THRIVE Score: 0 AUDIT C Alcohol Use Questionnaire (AUDIT-C) 1. How often do you have a drink containing alcohol?: Monthly or less 2. How many drinks containing alcohol do you have on a typical day when you are drinking?: 1 or 2 3. How often do you have six or more drinks on one occasion?: Less than monthly Total Score: 2 RODNEY-7 AMB Questionnaire RODNEY-7 Date RODNEY - 7 assessed: 01/21/25 Feeling nervous, anxious, or on edge: 1 = Several days Not being able to stop or control worryin = Not at all Worrying too much about different things: 0 = Not at all Trouble relaxin = Not at all Being so restless that it is hard to sit still: 0 = Not at all Becoming easily annoyed or irritable: 0 = Not at all Feeling afraid as if something awful might happen: 0 = Not at all Total RODNEY-7 score (0-4 normal; 5-9 mild; 10-14 moderate; 15-21 severe): 1 Source: Developed by Drs. Rizwan Olson, Tiffany Mcgrath, Satya Hamilton and colleagues, with an educational sheila from [employer]. Physical exam (Primary Care) Vital Signs: Last Vital Signs Temp 97.9 F 01/21/25 08:47 Pulse 70 01/21/25 08:47 BP 110/70 01/21/25 08:47 Pulse Ox 99 01/21/25 08:47 Oxygen Delivery Method Room Air 01/21/25 08:47 Care Plan Goal for BP management: BP in range BMI result Body Mass Index 25.2 Tobacco/Smoking Status: Tobacco use Status Tobacco use date assessed 01/21/25 01/21/25 08:51 Patient Tobacco Use Status Former Tobacco user 01/21/25 09:04 e-Cigarette/Vaping Use Former Use 01/21/25 09:04 PHQ-9: PHQ-9 Score PHQ-9: Total score 0 01/21/25 08:51 Depression Screening Interpretation: Negative Thrive Assessment: Date of Thrive Assessment Date Thrive assessed 01/21/25 01/21/25 08:51 Currently or been in a relationship where the following occur: No concerns reported Coding Level of Care Code New Pt Prev Care 40-64y(61311) Diagnoses Annual physical exam Z00.00 Hyperlipidemia E78.5 Assessment & Plan Assessment & Plan (1) Annual physical exam: Code(s): Z00.00 - Encounter for general adult medical examination without abnormal findings Plan: History of Present Illness - The patient is a 49-year-old female presenting for an annual physical examination and management of chronic conditions. - Insomnia: Reports difficulty sleeping at night, uses medication daily to aid sleep, which is effective for eight hours of sleep. - Hyperlipidemia: Recent blood work showed elevated cholesterol levels, attributed to dietary choices despite fasting before the test. - Preventative care: Due for a mammogram next month, up to date on colonoscopy performed last year. - Back pain: Experiences pain when driving or getting out of the car, with a history of varicose veins treated by Dr. Handley. - Varicose veins: Had a cluster of veins removed post-, continues to experience related discomfort. Social History - Employment: Works at [employer], runs [employer] in the [employer], off work during summer when school is out. - Family status: Has two children, a son aged 19 and a daughter aged 17. - Exercise: Walks three to six miles daily, does not engage in gym activities. - Diet: Drinks a lot of water, not a big drinker, does not smoke, enjoys red meat but is advised to limit intake. Review of Systems - General: Reports difficulty sleeping, uses medication for sleep. - Cardiovascular: Denies hypertension, no history of heart disease. - Respiratory: Denies any respiratory issues. - Gastrointestinal: Denies any gastrointestinal issues. - Musculoskeletal: Reports back pain, particularly when driving or getting out of the car. - Neurological: Denies any neurological issues. - Ophthalmologic: Reports needing glasses, occasional halos around lights. Physical Exam General: Cooperative and healthy appearing Nutritional Appearance: Well nourished Orientation/consciousness: Patient oriented x3 Limitations: No limitations Head: Normal to inspection General: Appearance normal, both eyes and all related structures Neck: Normal visual inspection Chest: Normal palpation of entire chest wall Respiratory: N ormal respiratory effort Neurology: Patient oriented x3, reports occasional halos around lights, vision requires glasses, hearing is good, no issues with bright lights or reading. Results - Labs: Recent blood work in January showed elevated cholesterol levels. Plan 1. Insomnia - Continue current sleep medication as it is effective in achieving adequate sleep. 2. Hyperlipidemia - Monitor cholesterol levels, repeat blood work in six months to reassess. - Dietary modifications suggested, including reducing red meat intake to twice a week. 3. Back Pain - Recommended stretching exercises to strengthen back muscles. 4. Varicose Veins - Previous treatment for varicose veins noted, no current intervention required. Discussion Notes During the visit, we discussed the patient's insomnia and the effectiveness of her current sleep medication. We reviewed her recent cholesterol levels and agreed to monitor them with a follow-up test in six months. Dietary modifications were suggested to help manage her hyperlipidemia. We also addressed her back pain, recommending stretching exercises to strengthen her back muscles. The patient was informed about the previous treatment for varicose veins and that no current intervention is required. Follow-up care was planned for six months later. Patient Instructions - Continue taking sleep medication as prescribed. - Follow dietary recommendations to reduce cholesterol, including limiting red meat intake to twice a week. - Engage in regular stretching exercises to alleviate back pain. - Return for follow-up in six months for cholesterol re-evaluation and overall health assessment. (2) Hyperlipidemia: Code(s): E78.5 - Hyperlipidemia, unspecified Category: Medical Plan: ELDA revd with patient. Pt aware of elevated LDL. Will try diet and exercise
--- OUTSIDE RECORDS SUMMARY | 2025-01-21 09:00 | XMS_ITS | Patient Health Record ---
Author Organization [facility] Address [address] [place] [id number] Care Team Providers Care Neighborhood Worker Name Role Phone Willem (RETIRED) Erick FRANKLIN Primary Care Provide r Unavailable Brad Merchant Jr Unavailable [phone] Allergies No Known Allergies Reason For Referral No Information Medications Medication [...] Problem Status W/U Status Risk Notes Problem [id number] Colon cancer screening (Z12.11) Active confirmed Problem [id number] Encounter for other preprocedural examination (Z01.818) Active confirmed Plan Of Treatment Future Test Test Name Order Date COLONOSCOPY 12/05/2023 Insurance Providers Payer Name Payer Address Payer Phone Subscriber Number Group Number Insured Name Patient Relationship to Insured Coverage Start Date Coverage End Date [facility] [address] [place] [phone] [id number] MORAIMA CHRISTIE Self - patient is the insured Medical (General) History Medical History History ICD Code low blood pressure Surgical History Surgery Date(Month/Year) Varicose vein stripping 07/26
== END 2025-01-21 09:22 | disposition home or self-care (01) ==
LOC: HO.HMCHD 08:51
PROVIDERS: PCP Internal Medicine; Visit Provider Internal Medicine
DX: Z00.00 Encounter for general adult medical examination without abnormal findings (principal); E78.5 Hyperlipidemia, unspecified

== ENCOUNTER 2025-03-16 10:22 | Outpatient (REF) | payer OTHER, SELFPAY ==
--- OUTSIDE RECORDS SUMMARY | 2023-09-22 10:15 | XMS_ITS ---
Author Organization [facility] Address [address] [place] [address] Care Team Providers Care Nutrition Manager Name Role Phone Willem (RETIRED) Erick FRANKLIN Primary Care Provide r Brad Woodard Jr [phone] REASON FOR VISIT COLON SCREENING Encounters Encounter Location Date Provider Diagnosis [facility] [address] [address] 09/22/2023 Brad Merchant Jr Plan Of Treatment No Information Progress Notes * MORAIMA QUEVEDODOB:[birth year] (49 yo F)Acc No.[id number]:09/22/2023 Progress Notes Patient: MORAIMA MCHUGH Provider: Antonino Merchant MD :1975 A ge:48 Y S ex:Female Date:09/22/2023 Address:[address] [place], [place] [phone] Pcp:Erick Bangura (RETIRED )MD Subjective: * Chief Complaints: * 1 . COLON SCREENING. * Medical History: Objective: * Vitals: Assessment: Plan: * Treatment: * * The named appointment provid er may or may not be the originator of this progress note, and it is not deemed complete until electronically signed by the appointment provider. Sign off status: Pending * Provider: Antonino Merchant MD Date: 0 09/22/2023 Generated for Mariangeli rick/Hattie/eTransmitting on: 0 03/16/2025 10:25 AM EDT
--- OUTSIDE RECORDS SUMMARY | 2024-01-10 04:20 | XMS_ITS ---
Author Organization [facility] Address [address] [place] [address] Care Team Providers Care Blue Prints Trimmer Name Role Phone Willem (RETIRED) Erick FRANKLIN Primary Care Provide r Brad Woodard Jr REASON FOR VISIT screening Encounters Encounter Location Date Provider Diagnosis [facility] [place] [address] [place] [phone] 01/10/2024 Brad Merchant Jr Encounter for screening colonoscopy Z12.11 and Colon polyps K63.5 Assessments Encounter Date Diagnosis (ICD Code) Assessment Notes Treatment Notes Treatment Clinical Notes Section Notes 01/10/2024 Encounter for screening colonoscopy (ICD-10 - Z12.11) 01/10/2024 Colon polyps (ICD-10 - K63.5) Plan Of Treatment No Information Progress Notes * MORAIMA QUEVEDODOB:[birth year] (49 yo F)Acc No.[id number]:01/10/2024 COLON WITH MAC Patient: DILLON MCHUGHINA Provider: Antonino Merchant MD :1975 A ge:48 Y S ex:Female Date:01/10/2024 Address:[address] [place], [place] [phone] Pcp:Erick Bangura (RETIRED )MD Subjective: * Chief Complaints: * 1 . Screening. * Medical History: Objective: * Vitals: Assessment: * Assessment: 1. E ncounter for screening colonoscopy - Z12.11 (Primary) 2 . C olon polyps - K63.5 Plan: * Treatment: * Procedure Codes: 4 5380 COLONOSCOPY AND BIOPSY * * The named appointment provid er may or may not be the originator of this progress note, and it is not deemed complete until electronically signed by the appointment provider. Sign off status: Pending * Provider: Antonino Merchant MD Date: 0 01/10/2024 Generated for Sanna cabrera/Hattie/Catrachitoitting on: 0 03/16/2025 10:25 AM EDT
--- NOTE | ~2025-03-16 | MM_ITS ---
EXAMINATION: MM SCREENING DIGITAL BREAST TOMOSYNTHESIS, BILATERAL CLINICAL INFORMATION: Screening. Asymptomatic. COMPARISON: Mammography: Comparison is made with available priors TECHNIQUE: Digital breast mammography with tomosynthesis is performed in both the craniocaudal and mediolateral oblique views along with computer-aided detection (CAD). FINDINGS: The breasts are heterogeneously dense, which may obscure small masses (ACR BI-RADS breast composition Category c). Right: Asymmetry superior breast middle to posterior depth on MLO view. No suspicious calcifications or other abnormal findings. Left: There are no significant masses, abnormal calcifications, or other abnormalities. MM/MM tomosynthesis screening BI IMPRESSION: Additional imaging is recommended ASSESSMENT: BI-RADS BI-RADS 0 - Incomplete: Needs additional Imaging. RECOMMENDATION: 1. Additional views of the right breast 2. Targeted ultrasound if warranted after review of the additional views. 3. Radiology department staff will contact the patient for additional imaging. Additional Imaging required This examination should not preclude the clinical evaluation of a suspicious palpable abnormality. This patient's information was entered into a reminder system with a target due date for their next mammogram. Electronically signed by: Mary Jo Camacho DO 03/19/2025 03:27 PM EDT
--- OUTSIDE RECORDS SUMMARY | 2025-03-16 10:25 | XMS_ITS | Patient Health Record ---
Author Organization [facility] Address [address] [place] [phone] Care Team Providers Care Cardiac Care Nurse Name Role Phone Willem (RETIRED) Erick FRANKLIN Primary Care Provide r Unavailable Brad Merchant Jr Unavailable [phone] Allergies No Known Allergies Reason For Referral [...] Problem Status W/U Status Risk Notes Problem [id number] Colon cancer screening (Z12.11) Active confirmed Problem [id number] Encounter for other preprocedural examination (Z01.818) Active confirmed Plan Of Treatment Future Test Test Name Order Date COLONOSCOPY 12/05/2023 Insurance Providers Payer Name Payer Address Payer Phone Subscriber Number Group Number Insured Name Patient Relationship to Insured Coverage Start Date Coverage End Date [facility] [address] [place] [phone] [id number] MORAIMA CHRISTIE Self - patient is the insured Medical (General) History Medical History History ICD Code low blood pressure Surgical History Surgery Date(Month/Year) Varicose vein stripping 07/26
== END 2025-03-16 10:23 | disposition home or self-care (01) ==
LOC: HO.MAMMO 10:22
PROVIDERS: PCP Physician Assistant; Visit Provider Physician Assistant
DX: Z12.31 Encounter for screening mammogram for malignant neoplasm of breast (principal)
CPT/HCPCS: 77063; 77067

== ENCOUNTER → 2025-03-16 10:45 | Outpatient (BNV) | payer OTHER, SELFPAY | PROVIDERS: PCP Physician Assistant; Visit Provider Internal Medicine | DX: Z12.31 Encounter for screening mammogram for malignant neoplasm of breast (principal) | CPT/HCPCS: 77063; 77067 ==

== ENCOUNTER 2025-04-29 14:53 | Outpatient (REF) | payer OTHER, SELFPAY ==
--- OUTSIDE RECORDS SUMMARY | 2024-01-10 04:20 | XMS_ITS ---
Author Organization [facility] Address [address] [place] [address] Care Team Providers Care Board Writer Name Role Phone Willem (RETIRED) Erick FRANKLIN Primary Care Provide r Brad Woodard Jr REASON FOR VISIT screening Encounters Encounter Location Date Provider Diagnosis [facility] [place] [address] [place] [phone] 01/10/2024 Brad Merchant Jr Encounter for screening colonoscopy Z12.11 and Colon polyps K63.5 Assessments Encounter Date Diagnosis (ICD Code) Assessment Notes Treatment Notes Treatment Clinical Notes Section Notes 01/10/2024 Encounter for screening colonoscopy (ICD-10 - Z12.11) 01/10/2024 Colon polyps (ICD-10 - K63.5) Plan Of Treatment No Information Progress Notes * MORAIMA QUEVEDODOB:[birth year] (49 yo F)Acc No.[id number]:01/10/2024 COLON WITH MAC Patient: DILLON MCHUGHINA Provider: Antonino Merchant MD :1975 A ge:48 Y S ex:Female Date:01/10/2024 Address:[address] [place], [place] [phone] Pcp:Erick Bangura (RETIRED )MD Subjective: * Chief [...] 0 01/10/2024 Generated for Sanna cabrera/Hattie/Catrachitoitting on: 06:18 PM EDT
--- NOTE | ~2025-04-29 | MM_ITS ---
EXAMINATION(S): MM DIAGNOSTIC DIGITAL BREAST TOMOSYNTHESIS, RIGHT CLINICAL INFORMATION: Callback from screening for right breast asymmetry in the upper breast middle to posterior depth. COMPARISON: Comparison made to multiple prior, most recent March 16, 2025, and most remote September 01, 2018. TECHNIQUE: Digital breast tomosynthesis is performed in full field ML 90 degrees along with computer-aided detection (CAD). Synthesized 2D images are generated from the tomosynthesis. Spot compression tomosynthesis were obtained. FINDINGS: BREAST COMPOSITION: There are scattered areas of fibroglandular density. RIGHT BREAST: Previously suggested asymmetry in the upper breast on MLO view does not persist on today's images; therefore, it represented overlapping fibroglandular breast tissue. Local parenchyma on today's images is similar to multiple prior studies as far back as September 2018. MM/MM tomosynthesis added views R IMPRESSION: RIGHT BREAST: Negative, no mammographic evidence of malignancy. Patient may return to routine screening mammogram. ASSESSMENT: BI-RADS: Category 1: Negative RECOMMENDATION: 1 year F/U Results were provided to the patient at time of visit by the technologist. This patient's information was entered into a reminder system with a target due date for their next mammogram. Electronically signed by: Bre Montgomery MD 04/29/2025 04:52 PM EDT
--- OUTSIDE RECORDS SUMMARY | 2025-04-29 18:18 | XMS_ITS | Patient Health Record ---
Author Organization [facility] Address [address] [place] [phone] Care Team Providers Care Weather Forecaster Name Role Phone Willem (RETIRED) Erick FRANKLIN Primary Care Provide r Brad Woodard Jr Unavailable [phone] Allergies No Known Allergies Reason For Referral No Information Medications Medication SIG (Take, Route, Frequency, Duration) Notes Start Date End Date Status Biotin 10 MG 1 tablet Orally Once a day; Duration: 30 day(s) Active Multi Vitamin - 1 tablet Orally Once a day; Duration: 30 day(s) Active Collagen 1500/C 500-50-0.8 MG as directed Orally Active Vitamin D 50 MCG (1999) 1 tablet Oral ly Once a day; Duration: 30 day(s) Active MiraLax (colon prep) 17 GM/SCOOP mixed with Gatorade or Crystal Light Orally begin at 5:00 p.m. the day before the procedure; Duration: 1 day 12/05/2023 Active Immunizations Vaccine Route [...] Problem Status W/U Status Risk Notes Problem Colon cancer screening (808135889) Colon cancer screening (Z12.11) Active confirmed Problem Pre-procedure evaluation check (898009527) Encounter for other preprocedural examination (Z01.818) Active confirmed Plan Of Treatment Future Test Test Name Order Date COLONOSCOPY 12/05/2023 Insurance Providers Payer Name Payer Address Payer Phone Subscriber Number Group Number Insured Name Patient Relationship to Insured Coverage Start Date Coverage End Date [facility] [address] [facility] [place] [phone] [id number] MORAIMA CHRISTIE Self - patient is the insured Medical (General) History Medical History History ICD Code low blood pressure Surgical History Surgery Date(Month/Year) Varicose vein stripping 07/26
== END 2025-04-29 14:54 | disposition home or self-care (01) ==
LOC: HO.MAMMO 14:53
PROVIDERS: PCP Internal Medicine; Visit Provider Physician Assistant
DX: N64.89 Other specified disorders of breast (principal)
CPT/HCPCS: 77061; 77065

== ENCOUNTER → 2025-04-29 15:00 | Outpatient (BNV) | payer OTHER, SELFPAY | PROVIDERS: PCP Internal Medicine; Visit Provider Radiology Body Imaging | DX: N64.89 Other specified disorders of breast (principal) | CPT/HCPCS: 77061; 77065 ==

== ENCOUNTER 2025-06-20 15:47 | Outpatient (REF) | payer OTHER, SELFPAY ==
--- OUTSIDE RECORDS SUMMARY | 2024-01-10 03:20 | XMS_ITS ---
Author Organization [facility] Address [address] [place] [address] Care Team Providers Care Semaphore Operator Name Role Phone Willem (RETIRED) Erick FRANKLIN Primary Care Provide r Brad Woodard Jr REASON FOR VISIT screening Encounters Encounter Location Date Provider Diagnosis [facility] [place] [address] [place] [phone] 01/10/2024 Brad Merchant Jr Encounter for screening colonoscopy Z12.11 and Colon polyps K63.5 Assessments Encounter Date Diagnosis (ICD Code) Assessment Notes Treatment Notes Treatment Clinical Notes Section Notes 01/10/2024 Encounter for screening colonoscopy (ICD-10 - Z12.11) 01/10/2024 Colon polyps (ICD-10 - K63.5) Plan Of Treatment No Information Progress Notes * MORAIMA QUEVEDODOB:[birth year] (49 yo F)Acc No.[id number]:01/10/2024 COLON WITH MAC Patient: DILLON MCHUGHINA Provider: Antonino Merchant MD :1975 A ge:48 Y S ex:Female Date:01/10/2024 Address:[address] [place], [place] [phone] Pcp:Erick Bangura (RETIRED )MD Subjective: * Chief Complaints: * S creening Assessment: * Assessment: 1. E ncounter for screening colonoscopy - Z12.11 (Primary) 2 . C olon polyps - K63.5 Plan: * Procedure Codes: 4 5380 COLONOSCOPY AND BIOPSY Billing Information: * Procedure Codes: 85053 COLONOSCOPY AND BIOPSY. * The named appointment provid er may or may not be the originator of this progress note, and it is not deemed complete until electronically signed by the appointment provider. Sign off status: Pending * Provider: Antonino Merchant MD Date: 0 01/10/2024 Generated for Sanna cabrera/Hattie/Catrcahitoitting on: 08/21/2024 07:32 PM EST
[2025-06-20 17:23] LABS: Appearance Urine Clear; Glucose Urine UA Negative (Negative); PH 6.5 (5.0-9.0); Specific Gravity - Urine 1.025 (1.005-1.025); UMIC TRIGGER UACC YES
--- OUTSIDE RECORDS SUMMARY | 2025-06-20 19:33 | XMS_ITS | Patient Health Record ---
Author Organization [facility] Address [address] [place] [phone] Care Team Providers Care Propagation Manager Name Role Phone Willem (RETIRED) Erick FRANKLIN Primary Care Provide r Brad Woodard Jr Unavailable Allergies No Known Allergies Reason For Referral No Information Medications Medication SIG (Take, Route, Frequency, Duration) Notes Start Date End Date Status Biotin 10 MG Tablet 1 tablet Orally Once a day; Duration: 30 day(s) Active Multi Vitamin - Tablet 1 tablet Orally O nce a day; Duration: 30 day(s) Active Collagen 1500/C 500-50-0.8 MG Capsule as directed Orally Active Vitamin D 50 MCG (1999) Tablet 1 tablet Orally Once a day; Duration: 30 day(s) Active MiraLax (colon prep) 17 GM/SCOOP Powder mixed with Gatorade or Crystal Light Orally begin at 5:00 p.m. the day before the procedure; Duration: 1 day 12/05/2023 Active Immunizations Vaccine Route Administration Date Status Comme nts Influenza Unknown 12/05/2023 Refused Social History Tobacco Use: Social History Observation Description Date Details (start date - stop date) Never Smoker NA - NA Social History Drugs/Alcohol: Social Info Question Answer Notes Alcohol Screen Did you have a drink containing alcohol in the past year? Yes How often did you have a drink containing alcohol in the past year? 2 to 3 times a week (3 points) How many drinks did you have on a typical day when you were drinking in the past year? 1 or 2 drinks (0 point) How often did you have 6 or more drinks on one occasion in the past year? 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 Problems Problem Type SNOMED Code ICD Code Onset Dates Problem Status W/U Status Risk Notes Problem Colon cancer screening (690054175) Colon cancer screening (Z12.11) Active confirmed Problem Pre-procedure evaluation check (022124281) Encounter for other preprocedural examination (Z01.818) Active confirmed Plan Of Treatment Future Test Test Name Order Date COLONOSCOPY 12/05/2023 Insurance Providers Payer Name Payer Address Payer Phone Subscriber Number Group Number Insured Name Patient Relationship to Insured Coverage Start Date Coverage End Date [facility] [address] [place] [phone] [id number] MORAIMA CHRISTIE Self - patient is the insured Medical (General) History Medical History History ICD Code low blood pressure Surgical History Surgery Date(Month/Year) Varicose vein stripping 07/26
== END 2025-06-20 15:48 | disposition home or self-care (01) ==
LOC: HO.LAB 15:47
PROVIDERS: PCP Physician Assistant; Visit Provider Student in an Organized Health Care Education/Training Program
DX: R30.0 Dysuria (principal)
CPT/HCPCS: 81001

== ENCOUNTER 2025-07-03 08:55 | Outpatient (REF) | payer OTHER, SELFPAY ==
--- OUTSIDE RECORDS SUMMARY | 2024-01-10 03:20 | XMS_ITS ---
Author Organization [facility] Address [address] [place] [address] Care Team Providers Care Dixonac Operator Name Role Phone Willem (RETIRED) Erick FRANKLIN Primary Care Provide r Brad Woodard Jr [phone] REASON FOR VISIT screening Encounters Encounter Location Date Provider Diagnosis [facility] [place] [address] [place] [phone] 01/10/2024 Brad Merchant Jr Encounter for screening colonoscopy Z12.11 and Colon polyps K63.5 Assessments Encounter Date Diagnosis (ICD Code) Assessment Notes Treatment Notes Treatment Clinical Notes Section Notes 01/10/2024 Encounter for screening colonoscopy (ICD-10 - Z12.11) 01/10/2024 Colon polyps (ICD-10 - K63.5) Plan Of Treatment No Information Progress Notes * MORAIMA QUEVEDODOB:[birth year] (49 yo F)Acc No.[id number]:01/10/2024 COLON WITH MAC Patient: DILLON MCHUGHINA Provider: Antonino Merchant MD :1975 A ge:48 Y S ex:Female Date:01/10/2024 Address:[address] [place], [place] [phone] Pcp:Erick Bangura (RETIRED )MD Subjective: * Chief Complaints: * S creening Assessment: * Assessment: 1. E ncounter for screening colonoscopy - Z12.11 (Primary) 2 . C olon polyps - K63.5 Plan: * Procedure Codes: 4 5380 COLONOSCOPY AND BIOPSY Billing Information: * Procedure Codes: 33485 COLONOSCOPY AND BIOPSY. * The named appointment provid er may or may not be the originator of this progress note, and it is not deemed complete until electronically signed by the appointment provider. Sign off status: Pending * Provider: Antonino Merchant MD Date: 0 01/10/2024 Generated for Sanna cabrera/Hattie/Catrachitoitting on: 09:02 AM EST
--- OUTSIDE RECORDS SUMMARY | 2025-07-03 09:02 | XMS_ITS | Patient Health Record ---
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 Problems Problem Type SNOMED Code ICD Code Onset Dates Problem Status W/U Status Risk Notes Problem Colon cancer screening (632914673) Colon cancer screening (Z12.11) Active confirmed Problem Pre-procedure evaluation check (691285325) Encounter for other preprocedural examination (Z01.818) Active confirmed Plan Of Treatment Future Test Test Name Order Date COLONOSCOPY 12/05/2023 Insurance Providers Payer Name Payer Address Payer Phone Subscriber Number Group Number Insured Name Patient Relationship to Insured Coverage Start Date Coverage End Date [facility] [address] [place] [phone] [id number] MORAIMA CHRISTIE Self - patient is the insured Medical (General) History Medical History History ICD Code low blood pressure Surgical History Surgery Date(Month/Year) Varicose vein stripping 07/26
[2025-07-03 09:06] LABS: MANUAL DIFF FLAG NO
[2025-07-03 09:29] LABS: Hematocrit 34.7 % (37.0-47.0); Hemoglobin 11.1 g/dl (12.0-16.0); Imm Gran Abs Auto 0.01 X10*3/uL (0.00-0.03); Imm Gran Pct Auto 0.2 % (0.0-0.4); Lymphocytes Absolute Auto 1.5 X10*3/uL (1.2-4.9); Mean Corpuscular HGB Conc 32.0 g/dl (31.0-35.0); Mean Corpuscular Hemoglobin 28.5 pg (27.0-33.0); Mean Corpuscular Volume 89.0 fL (80.0-98.0); NRBC Abs Auto 0.000 X10*3/uL (0.0-0.012); NRBC Pct Auto 0.0 /100WBC (0.0-0.2); Platelet Count 266 X10*3/uL (160-400); Red Blood Count 3.90 X10*6/uL (4.20-5.50); White Blood Count 4.4 X10*3/uL (4.8-10.8)
[2025-07-03 09:45] LABS: Alanine Aminotransferase 17 U/L (0-31); Albumin Level 4.2 g/dL (3.5-5.0); Alkaline Phosphatase 43 U/L (39-117); Anion Gap 9 (12-20); Aspartate Amino Transferase 15 U/L (5-31); Blood Urea Nitrogen 15 mg/dL (9-16); Calcium 8.6 mg/dL (8.4-10.2); Carbon Dioxide 27 mmol/L (22-29); Chloride 108 mmol/L (96-108); Cholesterol 213 mg/dL (<200); Estimated Glomerular Filt Rate > 60; HDL Cholesterol 84 mg/dL (>40); Iron 84 mcg/dL (30-160); Percent Iron Saturation 24 % (15-50); Potassium 4.0 mmol/L (3.3-5.1); Sodium 140 mmol/L (135-145); Total Iron Binding Capacity 343 mcg/dL (228-428); Total Protein 6.7 g/dL (6.5-8.0); Triglycerides 64 mg/dL (<150); Unsaturated Iron Binding 259 ug/dL
== END 2025-07-03 08:56 | disposition home or self-care (01) ==
LOC: HO.LAB 08:55
PROVIDERS: PCP Physician Assistant; Visit Provider Physician Assistant
DX: R42 Dizziness and giddiness (principal); E78.5 Hyperlipidemia, unspecified; D64.9 Anemia, unspecified
CPT/HCPCS: 36415; 80048; 80061; 80076; 83540; 85025